=== PATIENT | male | born 1975 | race Two or more races ===

== ENCOUNTER 2019-08-11 21:08 | Emergency (ER) | payer SELFPAY ==
[~2019-08-11] VITALS: Ht 182.9 cm; Wt 117.5 kg
[2019-08-11 21:20] VITALS: BP 122/77
[2019-08-11 22:05] LABS: Hemoglobin 11.4 g/dL (13.5-17.5)
[2019-08-11 22:07] LABS: Hematocrit 35.2 % (41.0-53.0); Mean Corpuscular Hemoglobin 26.5 pg (28.0-32.0); Mean Corpuscular Hgb Conc. 32.5 g/dL (32.0-36.0); Mean Corpuscular Volume 81.5 fL (80.0-100.0); Platelet Count (auto) 302 10^3/uL (140-450); Red Blood Cells 4.32 10^6/uL (4.5-5.90); Red Cell Distribution Width 19.5 % (11.8-14.3); White Blood Cell 13.1 10^3/uL (4.4-10.8)
[2019-08-11 22:09] LABS: Band Neutrophils % (manual) 0; Blast Cells 0; Metamyelocytes % 0; Myelocytes % 0; Promyelocytes % 0; Reactive Lymphocytes 0
[2019-08-11 22:21] LABS: Albumin 3.1 g/dL (3.4-5.0); Anion Gap 5 (5-15); Blood Urea Nitrogen 16 mg/dL (7-18); Calcium 7.7 mg/dL (8.5-10.1); Carbon Dioxide 26 mmol/L (21-32); Chloride 108 mmol/L (98-107); Glucose 143 mg/dL (74-106); Potassium 3.3 mmol/L (3.5-5.1); Sodium 139 mmol/L (136-145)
[2019-08-11 22:24] LABS: Basophils % (manual) 2 (0.0-2.0); Eosinophils % (manual) 3 (0-7); Lymphocytes % (manual) 54 (10.0-50.0); Monocytes % (manual) 3 (0-12)
[2019-08-11 22:27] LABS: Alanine Aminotransferase 30 U/L (16-61); Alkaline Phosphatase 82 U/L (45-117); Aspartate Aminotransferase 26 U/L (15-37); BUN/Creatinine Ratio 15.4; Bilirubin, Total 0.3 mg/dL (0.2-1.0); GFR African American 100 mL/min; GFR Non-African American 82 mL/min; Total Protein 7.6 g/dL (6.4-8.2)
== END 2019-08-11 21:51 | disposition left against medical advice (07) ==
LOC: EDBD 21:08 → EDUNIT# 21:08 → ER 21:12
DX: R55 Syncope and collapse (principal); Z53.21 Procedure and treatment not carried out due to patient leaving prior to being seen by health care provider
CPT/HCPCS: 36415; 80053; 84484; 85007; 85027; 93005